=== PATIENT | male | born 1955 | race African-American/Black ===

== ENCOUNTER 2017-10-30 10:02 | Observation (INO) ==
--- NOTE | 2017-10-30 10:31 | ED ---
HPI General Chief Complaint: Chest Pain Stated Complaint: SOB Time Seen by Provider: 10/30/17 10:26 Source: patient Mode of arrival: EMS Limitations: no limitations History of Present Illness [facility] has a history of hypertension high cholesterol sleep apnea comes in complaining of shortness of breath today. On upon arrival the patient's pulse ox was reading 93%. Patient denies having any coughing or runny nose or productive cough, patient also denies having any nausea vomiting or diarrhea, patient also denies having any history of congestive heart failure or COPD or of any lung tissue disease. MD Complaint: shortness of breath Onset (ago): day(s) (1) Severity: moderate Consistency/Duration: constant Relieving factors: nothing Exacerbating factors: exertion Treatment prior to arrival: oxygen Related Data Home oxygen amount: none Home Medications Medication Instructions Recorded Confirmed atorvastatin 40 mg PO DAILY 10/30/17 10/30/17 latanoprost 1 drp OPHTHALMIC (EYE) QPM 10/30/17 10/30/17 oxybutynin chloride 5 mg PO BID 10/30/17 10/30/17 sildenafil 50 mg PO DAILY PRN 10/30/17 10/30/17 terazosin 2 mg PO DAILY 10/30/17 10/30/17 Allergies Allergy/AdvReac Type Severity Reaction Status Date / Time hydrochlorothiazide Allergy Severe UNKNOWN Unverified 10/30/17 10:14 Review of Systems Except as stated in HPI: all other systems reviewed are negative PMFSH History History Provided By: Patient Medical History Medical History Hypertension (Acute) Benign prostate hyperplasia (Acute) Knee arthropathy (Acute) Sleep apnea (Acute) Hypercholesteremia (Acute) Arthritis (Acute) Social History Social History Substance History: Past History Smoking Status: Never smoker How Often Do You Have a Drink Containing Alcohol: Never Recent Travel in [place] within the Last 8 Weeks: No Recent Out of Country Travel within the Last 8 Weeks: No Substance Abuse Detail Marijuana: Substance Use Status: Sustained Remission Route Used Substance Abuse: Inhalation Immunization History Tetanus Immunization: >5 Years Hx Influenza Vaccine This Season: No Exam Narrative Exam Narrative: GENERAL: -Vincentian male in no apparent distress. SKIN: Warm and dry. HEAD: Atraumatic. Normocephalic. EYES: Pupils equal and round. No scleral icterus. No injection or drainage. ENT: No nasal bleeding or discharge. Mucous membranes pink and moist. NECK: Trachea midline. No JVD. CARDIOVASCULAR: Regular rate and rhythm. no rubs or gallops RESPIRATORY: No accessory muscle use. Mild tachypnea noted, clear to auscultation. Tidal volume adequate and equal bilaterally. GASTROINTESTINAL: Abdomen soft, non-tender, nondistended. No rebound or guarding MUSCULOSKELETAL: Extremities without clubbing, cyanosis, or 1+ pitting edema to bilateral lower extremities. No obvious deformities. NEUROLOGICAL: Awake and alert. No obvious cranial nerve deficits. Motor grossly within normal limits. Five out of 5 muscle strength in the arms and legs. Normal speech. PSYCHIATRIC: Appropriate mood and affect; insight and judgment normal. Course Initial Documented Vital Signs Temperature 98.3 F 10/30/17 10:16 Pulse Rate 81 10/30/17 10:16 Respiratory Rate 16 10/30/17 10:16 Blood Pressure 128/85 10/30/17 10:16 Pulse Oximetry 93 L 10/30/17 10:16 Last Documented Vital Signs Temperature 98.3 F 10/30/17 10:16 Pulse Rate 65 10/30/17 13:25 Respiratory Rate 20 10/30/17 13:25 Blood Pressure 133/81 10/30/17 13:25 Pulse Oximetry 99 10/30/17 13:25 Critical Care Time Critical Care Time: Yes Total Critical Care Time: 30 Attestation: Aggregate critical care time was 30 minutes. Time to perform other separately billable procedures was not included in the critical care time. My time did not include minutes spent treating any other patients simultaneously or on activities that did not directly contribute to the patient's treatment. The services I provided to this patient were to treat and/or prevent clinically significant deterioration that could result in: [Hypoxic brain injury and ] I provided critical care services requiring my management, as noted below: Chart data review, documentation time, medication orders and management, vital sign assessments/reviewing monitor data, ordering and reviewing lab tests, ordering and interpreting/reviewing x-rays and diagnostic studies, care of the patient and discussion of the patient with the admitting physicians. Medical Decision Making MDM Narrative Medical decision making narrative: CBC interpretation shows no leukocytosis, no left shift, no anemia, normal platelet count Coagulation profile is within normal limits First set of cardiac enzymes negative Electrolytes are all within normal limits Chest x-ray read by radiologist as hypoinflation with elevation of right hemidiaphragm and mild bibasilar atelectatic changes no confluent infiltrate As of [address] chest results Differential Diagnosis Differential Diagnosis: Pulmonary embolus versus pericardial effusion versus STEMI versus non-STEMI versus hypertensive emergency Medical Records Medical records reviewed: Yes I reviewed the patient's medical records. Lab Data Lab results reviewed: Yes I reviewed the patient's lab results. Result diagrams: 10/30/17 11:05 10/30/17 11:05 Lab Results 10/30/17 10/30/17 10/30/17 Range/Units 11:05 11:05 11:05 WBC 3.9 L (4.0-11.0) th/mm3 RBC 4.55 (4.50-5.90) mil/mm3 Hgb 13.7 (13.0-17.0) gm/dL Hct 40.9 (39.0-51.0) % MCV 89.9 (80.0-100.0) fL MCH 30.2 (27.0-34.0) pg MCHC 33.6 (32.0-36.0) % RDW 13.6 (11.6-17.2) % Plt Count 205 (150-450) th/mm3 MPV 8.2 (7.0-11.0) fL Neut % (Auto) 72.9 H (16.0-70.0) % Lymph % (Auto) 18.6 (9.0-44.0) % [place] % (Auto) 7.2 (0.0-8.0) % Eos % (Auto) 0.8 (0.0-4.0) % Baso % (Auto) 0.5 (0.0-2.0) % Neut # (Auto) 2.9 (1.8-7.7) th/mm3 Lymph # (Auto) 0.7 L (1.0-4.8) th/mm3 [place] # (Auto) 0.3 (0.0-0.9) th/mm3 Eos # (Auto) 0.0 (0.0-0.4) th/mm3 Baso # (Auto) 0.0 (0.0-0.2) th/mm3 WBC Differential . Differential Comment Auto diff final PT 10.4 (9.8-11.6) sec INR 1.0 Ratio APTT 25.7 (24.3-30.1) sec Sodium 141 (136-145) meq/L Potassium 3.3 L (3.5-5.1) meq/L Chloride 109 H (98-107) meq/L Carbon Dioxide 24.7 (21.0-32.0) meq/L Anion Gap 7 (5-15) meq/L BUN 10 (7-18) mg/dL Creatinine 1.24 (0.60-1.30) mg/dL Estimated GFR 72 L (>89) mL/min Random Glucose 87 (74-106) mg/dL Calcium 7.7 L (8.5-10.1) mg/dL Troponin I Less than 0.02 L (0.02-0.05) ng/mL Imaging Data Radiologist's impression: Chest X-Ray 10/30/17 10:55 CONCLUSION: 1. Hypoinflation with some elevation of the right hemidiaphragm and mild bibasilar atelectatic changes. 2. No confluent infiltrate. Chest CTA 10/30/17 10:56 CONCLUSION: 1. No evidence of pulmonary emboli. 2. Small area of consolidation and/or atelectasis in the right lower lobe. The left lung is clear. ECG Data EKG Prior to Arrival: No Attestation: I personally reviewed and interpreted this ECG as follows: Prior ECG tracings: not available for review Interpretation: Normal sinus rhythm, 82 bpm, normal intervals, nonspecific ST- T wave changes Discharge Plan Discharge Disposition Patient Disposition: 30 Still Patient Discharge Condition Condition: Stable Discharge Details Diagnosis: Pneumonia, Hypoxemia Physicians Team ED Provider: Hemant Mello Primary Care Provider: [facility],Physician 's Rxs /Orders / Referrals /Forms Prescriptions: No Action latanoprost 0.005 % Drops 1 drp OPHTHALMIC (EYE) QPM RF: 0 atorvastatin 40 mg Tablet 40 mg PO DAILY RF: 0 sildenafil 100 mg Tablet 50 mg PO DAILY PRN (Reason: Sexual Activity) RF: 0 terazosin 2 mg Capsule 2 mg PO DAILY RF: 0 oxybutynin chloride 5 mg Tablet 5 mg PO BID RF: 0 Status ED Status: With Doctor
[2017-10-30 11:24] LABS: Baso % (Auto) 0.5 % (0.0-2.0); Eos % (Auto) 0.8 % (0.0-4.0); Hematocrit 40.9 % (39.0-51.0); Hemoglobin 13.7 gm/dL (13.0-17.0); Lymph # (Auto) 0.7 th/mm3 (1.0-4.8); Lymph % (Auto) 18.6 % (9.0-44.0); Mean Corpuscular HGB Conc 33.6 % (32.0-36.0); Mean Corpuscular Hemoglobin 30.2 pg (27.0-34.0); Mean Corpuscular Volume 89.9 fL (80.0-100.0); Mean Platelet Volume 8.2 fL (7.0-11.0); Mono # (Auto) 0.3 th/mm3 (0.0-0.9); Mono % (Auto) 7.2 % (0.0-8.0); Neut # (Auto) 2.9 th/mm3 (1.8-7.7); Neut % (Auto) 72.9 % (16.0-70.0); Platelet Count 205 th/mm3 (150-450); Red Blood Count 4.55 mil/mm3 (4.50-5.90); Red Cell Distribution Width 13.6 % (11.6-17.2); White Blood Count 3.9 th/mm3 (4.0-11.0)
[2017-10-30 11:29] LABS: Activated Partial Thrombo Time 25.7 sec (24.3-30.1); Prothrombin Time 10.4 sec (9.8-11.6)
[2017-10-30 11:34] LABS: Anion Gap 7 meq/L (5-15); Blood Urea Nitrogen 10 mg/dL (7-18); Calcium 7.7 mg/dL (8.5-10.1); Carbon Dioxide 24.7 meq/L (21.0-32.0); Chloride 109 meq/L (98-107); Glomerular Filtration Rate 72 mL/min (>89); Glucose,Random 87 mg/dL (74-106); Potassium 3.3 meq/L (3.5-5.1); Sodium 141 meq/L (136-145)
--- NOTE | 2017-10-30 11:49 | XR ---
EXAM DATE: 10/30/2017 11:39 AM EDT AGE/SEX: 62 years / Male INDICATIONS: Chest pains with shortness of breath and pressure. CLINICAL DATA: This is the patient's initial encounter. Patient reports that signs and symptoms have been present for 1 day and indicates a pain score of 6/10. MEDICAL/SURGICAL HISTORY: None. None. COMPARISON: No prior exams available for comparison. FINDINGS: A single AP view of the chest demonstrates some elevation of the right hemidiaphragm with mild bibasi lar atelectatic changes. Lungs are hypoinflated. Heart size is borderline prominent but well compensa ketty. Osseous structures are intact. CONCLUSION: 1. Hypoinflation with some elevation of the right hemidiaphragm and mild bibasilar atelectatic early es. 2. No confluent infiltrate. Electronically signed by: George Hwang MD 10/30/2017 11:48 AM EDT
--- NOTE | 2017-10-30 12:42 | CT ---
EXAM DATE: 10/30/2017 12:36 PM EDT AGE/SEX: 62 years / Male INDICATIONS: SHORTNESS OF BREATH CLINICAL DATA: This is the patient's initial encounter. Patient reports that signs and symptoms have been present for 1 day and indicates a pain score of 0/10. MEDICAL/SURGICAL HISTORY: Hypertension. None. RADIATION DOSE: 10.74 CTDI (mGy) COMPARISON: C, CHEST 1V SINGLE AP, 10/30/2017. . TECHNIQUE: Volumetric scanning was performed using a multi-row detector CT scanner during bolus infu stephanie of 50 ml Omnipaque 350 (iohexol) nonionic water-soluble contrast as a single exam dose. The nancie a was post processed with a variety of visualization algorithms including full volume maximum intensi ty projection and sliding thin slab reformation. Using automated exposure control and adjustment of t he mA and/or kV according to patient size, radiation dose was kept as low as reasonably achievable to obtain optimal diagnostic quality images. DICOM format image data is available electronically for r eview and comparison. FINDINGS: Pulmonary Arteries: No filling defects are seen in the pulmonary arteries out to the subsegmental ve ssels. The left and right pulmonary arteries are normal in diameter. Lung: Is a small area of consolidation and or atelectasis in the right lower lobe. Effusion: None. Mediastinum: No evidence of mediastinal or hilar adenopathy. Other: The axilla is unremarkable. CONCLUSION: 1. No evidence of pulmonary emboli. 2. Small area of consolidation and/or atelectasis in the right lower lobe. The left lung is clear. Electronically signed by: Jon Santa MD 10/30/2017 12:41 PM EDT
[2017-10-30] MEDS ORDERED: Azithromycin Inj 500 MG in Sodium Chlor 0.9% Inj 250 ML IV.SIG STA (13:07)
[2017-10-30] MEDS ORDERED: Temazepam 15 MG Capsule PO PRN (13:45)
[2017-10-30] MEDS ORDERED: Bisacodyl 10 MG Supp RECTAL PRN (13:45)
[2017-10-30] MEDS: Heparin - SQ 10,000 UNITS/ML Vial SQ SCH (14:40)
--- NOTE | 2017-10-30 15:46 | P.HPIM ---
History of Present Illness Primary Care Physician: Physician [facility] History of Present Illness: 62-year-old male with a history of hypertension, hyperlipidemia, obstructive sleep apnea who presents with a 2 day history of worsening shortness of breath, as well as nonproductive cough. Patient works the shift superintendent at a facility, and had to nitin after patient last night, and was noted to be much more short of breath than usual. Patient denies any chest pain. He does report some lightheadedness which resolved upon receiving nebulizations in the ER. Patient says he is feeling a little better. Denies any nausea, vomiting, diarrhea, constipation. Patient has history of left knee surgery with +1 edema on the left at baseline, without change. Review of Systems Performed and negative except for HPI and past medical history. [facility] - History History Provided By: Patient, Medical Record - Medical History Medical History: Medical History (Last Reviewed 10/30/17 @ 14:28 by Sonia Benítez RN) Hypertension (Acute) Benign prostate hyperplasia (Acute) Knee arthropathy (Acute) Sleep apnea (Acute) Hypercholesteremia (Acute) Arthritis (Acute) - Surgical History Surgical History: Surgical History (Last Reviewed 10/30/17 @ 14:28 by Sonia Benítez RN) H/O knee surgery - Family History Family History: Family History (Last Updated 10/30/17 @ 15:[address] MD) Father Healthy adult Mother Diabetes - Tobacco History Second Hand Smoke Exposure: No Smoking Status: Never smoker - Alcohol History How Often Do You Have a Drink Containing Alcohol: 2 to 3 times a week - Substance Use History Substance History: Past History - Substance Use Type Marijuana Status: Sustained Remission Route Used: Inhalation - Travel History Recent Travel in the [place] Within the Last 8 Weeks: No Recent Travel Out of the Country Within the Last 8 Weeks: No - Immunization History Tetanus Immunization: >5 Years Hx Influenza Vaccine This Season: No Medications and Allergies Active Medications: Active Medications Al Hydroxide/Mg Hydroxide (Milk Of [place] Liq) 30 ml PO Q12H PRN PRN Reason: Mild Constipation Albuterol (Duoneb Neb (Prn)) 1 ampul NEB Q4HR NEB PRN PRN Reason: SHORTNESS OF BREATH/WHEEZING Albuterol (Duoneb Neb (Brooke)) 1 ampul NEB Q6HR NEB [place] Atorvastatin Calcium (Lipitor) 40 mg PO DAILY [facility] Last Admin: 07/19/18 14:40 Dose: 40 mg Bisacodyl (Dulcolax Supp) 10 mg RECTAL DAILY PRN PRN Reason: SEVERE CONSITIPATION Heparin Sodium (Porcine) (Heparin Inj) 5,000 units SQ Q12H [facility] Last Admin: 10/30/17 14:40 Dose: 5,000 units Ceftriaxone Sodium 1,000 mg/ (Sodium Chloride) 100 mls @ 200 mls/hr IV.SIG Q24H [facility] Azithromycin 500 mg/ Sodium (Chloride) 250 mls @ 250 mls/hr IV.SIG Q24H [facility] Lactulose (Lactulose Liq) 30 ml PO DAILY PRN PRN Reason: SEVERE CONSITIPATION Latanoprost (Xalatan 0.005% Opth Drops) 1 drop EACH EYE QPM [facility] Senna/Docusate Sodium (Dee-Colace) 1 tab PO BID [facility] Sennosides (Senokot) 17.2 mg PO Q12H PRN PRN Reason: Moderate Constipation Sodium Chloride (Ns Flush) 2 ml IV.FLUSH UNSCH PRN PRN Reason: FLUSH AFTER USING IV ACCESS Temazepam (Restoril) 15 mg PO HS PRN PRN Reason: INSOMNIA Terazosin HCl (Hytrin) 2 mg PO DAILY [facility] Allergies Allergy/AdvReac Type Severity Reaction Status Date / Time hydrochlorothiazide Allergy Severe UNKNOWN Verified 10/30/17 14:28 Home Medications Medication Instructions Recorded Confirmed Type atorvastatin 40 mg PO DAILY 10/30/17 10/30/17 History latanoprost 1 drp OPHTHALMIC (EYE) QPM 10/30/17 10/30/17 History oxybutynin chloride 5 mg PO BID 10/30/17 10/30/17 History sildenafil 50 mg PO DAILY PRN 10/30/17 10/30/17 History terazosin 2 mg PO DAILY 10/30/17 10/30/17 History Exam Vital signs: Vital Signs 10/30/17 10:16 10/30/17 11:14 10/30/17 13:25 Temperature 98.3 F Pulse Rate 81 87 65 Respiratory Rate 16 16 20 Blood Pressure 128/85 128/82 133/81 Pulse Oximetry 93 L 97 99 Intake & Output 10/29/17 10/30/17 10/30/17 18:59 06:59 18:59 Intake Total 100 / 100 Balance 100 / 100 Weight 140.614 kg Intake: IV 100 / 100 Rocephin Inj 2,000 MG In NS Inj 100 / 100 100 ML @ 200 mls/hr IV.SIG STAT STA Rx#:[id number] Narrative: GENERAL: Patient walking in hallway, sitting on bed. Appears comfortable. Alert and oriented 3. SKIN: Warm and dry. HEAD: Atraumatic. Normocephalic. EYES: Pupils equal and round. No scleral icterus. No injection or drainage. ENT: No nasal bleeding or discharge. Mucous membranes pink and moist. NECK: Trachea midline. No JVD. CARDIOVASCULAR: Regular rate and rhythm. RESPIRATORY: No accessory muscle use. rhonchi on the right with deep inspiration. No wheezes. No rales. GASTROINTESTINAL: Abdomen soft, non-tender, nondistended. Hepatic and splenic margins not palpable. MUSCULOSKELETAL: Extremities without clubbing, cyanosis. No obvious deformities. Patient with old surgical scar left knee. +1 edema left lower leg. No edema on the right. NEUROLOGICAL: Awake and alert. No obvious cranial nerve deficits. Motor grossly within normal limits. Five out of 5 muscle strength in the arms and legs. Normal speech. PSYCHIATRIC: Appropriate mood and affect; insight and judgment normal. Results - Labs CBC & Chem 7: 10/30/17 11:05 10/30/17 11:05 Labs: Short CBC 10/30/17 Range/Units 11:05 WBC 3.9 L (4.0-11.0) th/mm3 Hgb 13.7 (13.0-17.0) gm/dL Hct 40.9 (39.0-51.0) % Plt Count 205 (150-450) th/mm3 [facility] 10/30/17 11:05 Sodium 141 Potassium 3.3 L Chloride 109 H Carbon Dioxide 24.7 BUN 10 Creatinine 1.24 Calcium 7.7 L Cardiac Enzymes 10/30/17 Range/Units 11:05 Troponin I Less than 0.02 L (0.02-0.05) ng/mL - Imaging Impressions Chest X-Ray 10/30/17 10:55 CONCLUSION: 1. Hypoinflation with some elevation of the right hemidiaphragm and mild bibasilar atelectatic changes. 2. No confluent infiltrate. Chest CTA 10/30/17 10:56 CONCLUSION: 1. No evidence of pulmonary emboli. 2. Small area of consolidation and/or atelectasis in the right lower lobe. The left lung is clear. Caprini VTE Risk Assessment Caprini VTE Risk Assessment: Moderate/High Risk (score >= 2) Caprini Risk Assessment Model: Point Value = 1 Point Value = 2 Point Value = 3 Point Value = 5 Age 41-60 Minor surgery BMI > 25 kg/m2 Swollen legs Varicose veins or History of unexplained or recurrent spontaneous Oral contraceptives or hormone replacement Sepsis (< 1 month) Serious lung disease, including pneumonia (< 1 month) Abnormal pulmonary function Acute myocardial infarction Congestive heart failure (< 1 month) History of inflammatory bowel disease Medical patient at bed rest Age 61-74 Arthroscopic surgery Major open surgery (> 45 min) Laparoscopic surgery (> 45 min) Malignancy Confined to bed (> 72 hours) Immobilizing plaster cast Central venous access Age >= 75 History of VTE Family history of VTE Factor V Leiden Prothrombin [id number] Lupus anticoagulant Anticardiolipin antibodies Elevated serum homocysteine Heparin-induced thrombocytopenia Other congenital or acquired thrombophilia Stroke (< 1 month) Elective arthroplasty Hip, pelvis, or leg fracture Acute spinal cord injury (< 1 month) Prophylaxis Regimen: Total Risk Factor Score Risk Level Prophylaxis Regimen 0-1 Low Early ambulation 2 Moderate Order ONE of the following: *Sequential Compression Device (SCD) *Heparin 5000 units SQ BID 3-4 Higher Order ONE of the following medications: *Heparin 5000 units SQ TID *Enoxaparin/Lovenox 40 mg SQ daily (WT < 150 kg, CrCl > 30 mL/min) *Enoxaparin/Lovenox 30 mg SQ daily (WT < 150 kg, CrCl > 10-29 mL/min) *Enoxaparin/Lovenox 30 mg SQ BID (WT < 150 kg, CrCl > 30 mL/min) AND/OR *Sequential Compression Device (SCD) 5 or more Highest Order ONE of the following medications: *Heparin 5000 units SQ TID (Preferred with Epidurals) *Enoxaparin/Lovenox 40 mg SQ daily (WT < 150 kg, CrCl > 30 mL/min) *Enoxaparin/Lovenox 30 mg SQ daily (WT < 150 kg, CrCl > 10-29 mL/min) *Enoxaparin/Lovenox 30 mg SQ BID (WT < 150 kg, CrCl > 30 mL/min) AND *Sequential Compression Device (SCD) Assessment and Plan - Plan //Right lower lobe pneumonia //Community-acquired pneumonia = Chest x-ray reviewed. = With relative hypoxia from baseline. 93 on room air. = Continue IV ceftriaxone and azithromycin. Scheduled and as needed duo nebs /Hypokalemia. 3.3. Replace and monitor. //Leukopenia. 3.9. Uncertain chronicity. Monitor. //Hypertension. Chronic. Blood pressure acceptable. Continue home medication. //Hyperlipidemia. Chronic. Continue home medication. //Glaucoma. Pupils equal round reactive to light and accommodation. Continue eyedrops. Discharge Planning: Likely discharge home tomorrow if feeling better. H&P: Quality - VTE Deep Vein Thrombosis/Pulmonary Embolism Present on Admission: No
[2017-10-30] MEDS ORDERED: Latanoprost 0.005% Opth Drops 2.5 ML Bottle EACH EYE SCH (18:00)
--- NOTE | 2017-10-30 18:53 | ECG ---
Date Performed: 10/30/2017 Time Performed: 10:24:50 PTAGE: 62 years EKG: Sinus rhythm NONSPECIFIC T-WAVE ABNORMALITY ABNORMAL ECG PREVIOUS TRACING : 11/09/2007 13.15 Prior Tracing had incorrect Lead placement, non-specific ST -T wave changes may be new. DOCTOR: Ralph Vance Interpretating Date/Time 10/30/2017 18:52:47
[2017-10-30] MEDS: Senna/Docusate Sodium 8.6/50 MG Tablet PO SCH (21:22)
[2017-10-31] MEDS: Heparin - SQ 10,000 UNITS/ML Vial SQ SCH (01:43)
[2017-10-31] MEDS: Senna/Docusate Sodium 8.6/50 MG Tablet PO SCH (08:57)
[2017-10-31 10:31] LABS: Albumin 2.8 g/dL (3.4-5.0); Anion Gap 6 meq/L (5-15); Aspartate Aminotransferase 15 U/L (15-37); Blood Urea Nitrogen 10 mg/dL (7-18); Calcium 8.4 mg/dL (8.5-10.1); Carbon Dioxide 29.5 meq/L (21.0-32.0); Chloride 106 meq/L (98-107); Glomerular Filtration Rate 65 mL/min (>89); Potassium 3.9 meq/L (3.5-5.1); Sodium 141 meq/L (136-145)
[2017-10-31 10:39] LABS: Alanine Aminotransferase 18 U/L (12-78); Alkaline Phosphatase 100 U/L (45-117); Glucose,Random 83 mg/dL (74-106); Total Protein 7.7 g/dL (6.4-8.2)
[2017-10-31] MEDS ORDERED: guaiFENesin 600 MG ER Tablet PO SCH (11:00)
--- NOTE | 2017-10-31 11:26 | P.PN ---
Subjective Interval history: Patient is seen sitting up in bed. He just finished breakfast and tells me that he feels well. Denies any continued shortness of breath. Some intermittent coughing with sputum production. Denies any chest pain. Denies nausea vomiting or diarrhea. He tells me that he would like to go home today. Physical Exam Vital signs: Vital Signs 10/30/17 13:25 10/30/17 16:00 10/30/17 19:23 Temperature 97.9 F 97.8 F Pulse Rate 65 80 71 Respiratory Rate 20 16 16 Blood Pressure 133/81 140/91 H 131/82 Pulse Oximetry 99 96 95 10/30/17 20:13 10/31/17 00:00 10/31/17 04:00 Temperature 97.6 F 98.5 F Pulse Rate 79 78 63 Respiratory Rate 18 Blood Pressure 136/93 H 134/88 Pulse Oximetry 95 99 10/31/17 04:01 10/31/17 08:00 10/31/17 10:31 Temperature 98.1 F Pulse Rate 76 81 93 H Respiratory Rate 18 Blood Pressure 140/92 H Pulse Oximetry 96 100 Intake & Output 10/30/17 10/31/17 10/31/17 18:59 06:59 18:59 Intake Total 450 / 450 720 / 720 500 / 500 Output Total 1450 / 1450 Balance 450 / 450 -730 / -730 500 / 500 Weight 140.614 kg Intake: IV 450 / 450 Azithromycin Inj 500 MG In NS 250 / 250 Inj 250 ML @ 250 mls/hr IV.SIG STAT STA Rx#:[id number] Rocephin Inj 1,000 MG In NS Inj 100 / 100 100 ML @ 200 mls/hr IV.SIG Q24H [facility] Rx#:[id number] Rocephin Inj 2,000 MG In NS Inj 100 / 100 100 ML @ 200 mls/hr IV.SIG STAT STA Rx#:[id number] Oral 720 / 720 500 / 500 Output: Urine 1450 / 1450 Other: # Voids 3 Date of Last Bowel Movement 10/29/17 # Bowel Movements 0 Narrative: GENERAL: Well-nourished, well-developed adult male in no obvious distress. SKIN: Warm and dry. HEAD: Atraumatic. Normocephalic. CARDIOVASCULAR: Regular rate and rhythm. RESPIRATORY: No accessory muscle use. Clear to auscultation. Breath sounds equal bilaterally. No cough during exam. GASTROINTESTINAL: Abdomen soft, non-tender, distended. Positive bowel sounds. MUSCULOSKELETAL: Extremities without clubbing, cyanosis, or edema. No obvious deformities. NEUROLOGICAL: Awake and alert. No obvious cranial nerve deficits. Motor grossly within normal limits. Normal speech. PSYCHIATRIC: Appropriate mood and affect; insight and judgment good. Results - Labs CBC & Chem 7: 10/30/17 11:05 10/31/17 09:34 Laboratory Results - last 24 hr 10/30/17 10/30/17 10/30/17 11:05 11:05 11:05 WBC 3.9 L RBC 4.55 Hgb 13.7 Hct 40.9 MCV 89.9 MCH 30.2 MCHC 33.6 RDW 13.6 Plt Count 205 MPV 8.2 Neut % (Auto) 72.9 H Lymph % (Auto) 18.6 [place] % (Auto) 7.2 Eos % (Auto) 0.8 Baso % (Auto) 0.5 Neut # (Auto) 2.9 Lymph # (Auto) 0.7 L [place] # (Auto) 0.3 Eos # (Auto) 0.0 Baso # (Auto) 0.0 WBC Differential . Differential Comment Auto diff final PT 10.4 INR 1.0 APTT 25.7 Sodium 141 Potassium 3.3 L Chloride 109 H Carbon Dioxide 24.7 Anion Gap 7 BUN 10 Creatinine 1.24 Estimated GFR 72 L Random Glucose 87 Calcium 7.7 L Total Bilirubin AST ALT Alkaline Phosphatase Troponin I Less than 0.02 L Total Protein Albumin 10/31/17 09:34 WBC RBC Hgb Hct MCV MCH MCHC RDW Plt Count MPV Neut % (Auto) Lymph % (Auto) [place] % (Auto) Eos % (Auto) Baso % (Auto) Neut # (Auto) Lymph # (Auto) [place] # (Auto) Eos # (Auto) Baso # (Auto) WBC Differential Differential Comment PT INR APTT Sodium 141 Potassium 3.9 Chloride 106 Carbon Dioxide 29.5 Anion Gap 6 BUN 10 Creatinine 1.36 H Estimated GFR 65 L Random Glucose 83 Calcium 8.4 L Total Bilirubin 0.5 AST 15 ALT 18 Alkaline Phosphatase 100 Troponin I Total Protein 7.7 Albumin 2.8 L - Imaging Impressions Chest X-Ray 10/30/17 10:55 CONCLUSION: 1. Hypoinflation with some elevation of the right hemidiaphragm and mild bibasilar atelectatic changes. 2. No confluent infiltrate. Chest CTA 10/30/17 10:56 CONCLUSION: 1. No evidence of pulmonary emboli. 2. Small area of consolidation and/or atelectasis in the right lower lobe. The left lung is clear. Assessment and Plan - Assessment (1) Community acquired bacterial pneumonia Code(s): J15.9 - Unspecified bacterial pneumonia Status: Acute - Plan //Right lower lobe pneumonia; Community-acquired -Chest x-ray showed mild basilar atelectatic changes. CTA negative for PE -IV ceftriaxone and azithromycin given; we will discharge with Levaquin, Mucinex ,, albuterol inhaler and short course of prednisone. -Scheduled and as needed duo nebs /Hypokalemia. 3.3. Replace and monitor. //Leukopenia. 3.9. Uncertain chronicity. Monitor. //Hypertension. Chronic. Blood pressure acceptable. Continue home medication. //Hyperlipidemia. Chronic. Continue home medication. //Glaucoma. Pupils equal round reactive to light and accommodation. Continue eyedrops. Discharge Planning: Discharged today with additional medication.
--- NOTE | 2017-10-31 11:37 | P.DS ---
<Jazmin Frias - Last Filed: 10/31/17 11:40> Date of admission: 10/30/17 13:45 Primary care physician: [facility] Attending physician on discharge: Bernard Lane Anticipated date of discharge: 10/31/17 Brief History from admission: 62-year-old male with a history of hypertension, hyperlipidemia, obstructive sleep apnea who presents with a 2 day history of worsening shortness of breath, as well as nonproductive cough. 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 Patient denies any chest pain. He does report some lightheadedness which resolved upon receiving nebulizations in the ER. Patient says he is feeling a little better. Denies any nausea, vomiting, diarrhea, constipation. Patient has history of left knee surgery with +1 edema on the left at baseline, without change. DS: Diagnosis - Discharge Diagnosis (1) Community acquired bacterial pneumonia Status: Acute DS: Medications - Discharge Medications Prescriptions: albuterol sulfate [Ventolin HFA] 2 puff INH Q6H PRN #1 g PRN Reason: Shortness Of Breath guaifenesin [Mucinex] 600 mg PO BID #14 tab levofloxacin 750 mg PO DAILY #5 tab prednisone 20 mg PO DAILY #5 tab DS: Summary Hospital Course: 62-year-old male with a history of hypertension, hyperlipidemia, obstructive sleep apnea who presented to the ED with a 2 day history of worsening shortness of breath, as well as nonproductive cough. 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 Patient denied chest pain. He reported some lightheadedness which resolved upon receiving nebulizations in the ER. He was found to have right lower lobe pneumonia and was treated with IV ceftriaxone and azithromycin. Imaging in hospital include chest x-ray showed mild basilar atelectatic changes. CTA negative for PE. Patient did have an episode of hypokalemia which was replaced and resolved. Also noted to have leukopenia of uncertain chronicity.. Chronic conditions including hypertension, hyperlipidemia and glaucoma you were stable at visit. Discharged with Levaquin , Mucinex, albuterol inhaler and short course of prednisone. [facility] - Time Spent with Patient Total time spent providing and/or coordinating discharge services: - Quality: VTE Deep Vein Thrombosis/Pulmonary Embolism Present on Admission: No Exam Vital signs: Vital Signs 10/30/17 13:25 10/30/17 16:00 10/30/17 19:23 Temperature 97.9 F 97.8 F Pulse Rate 65 80 71 Respiratory Rate 20 16 16 Blood Pressure 133/81 140/91 H 131/82 Pulse Oximetry 99 96 95 10/30/17 20:13 10/31/17 00:00 10/31/17 04:00 Temperature 97.6 F 98.5 F Pulse Rate 79 78 63 Respiratory Rate 16 18 Blood Pressure 136/93 H 134/88 Pulse Oximetry 95 99 10/31/17 04:01 10/31/17 08:00 10/31/17 10:31 Temperature 98.1 F Pulse Rate 76 81 93 H Respiratory Rate 18 Blood Pressure 140/92 H Pulse Oximetry 96 100 Intake & Output 10/30/17 10/31/17 10/31/17 18:59 06:59 18:59 Intake Total 450 / 450 720 / 720 500 / 500 Output Total 1450 / 1450 Balance 450 / 450 -730 / -730 500 / 500 Weight 140.614 kg Intake: IV 450 / 450 Azithromycin Inj 500 MG In NS 250 / 250 Inj 250 ML @ 250 mls/hr IV.SIG STAT STA Rx#:[id number] Rocephin Inj 1,000 MG In NS Inj 100 / 100 100 ML @ 200 mls/hr IV.SIG Q24H ALEXANDER Rx#:[id number] Rocephin Inj 2,000 MG In NS Inj 100 / 100 100 ML @ 200 mls/hr IV.SIG STAT STA Rx#:[id number] Oral 720 / 720 500 / 500 Output: Urine 1450 / 1450 Other: # Voids 3 Date of Last Bowel Movement 10/29/17 # Bowel Movements 0 Narrative: GENERAL: Well-nourished, well-developed adult male in no obvious distress. SKIN: Warm and dry. HEAD: Atraumatic. Normocephalic. CARDIOVASCULAR: Regular rate and rhythm. RESPIRATORY: No accessory muscle use. Clear to auscultation. Breath sounds equal bilaterally. No cough during exam. GASTROINTESTINAL: Abdomen soft, non-tender, distended. Positive bowel sounds. MUSCULOSKELETAL: Extremities without clubbing, cyanosis, or edema. No obvious deformities. NEUROLOGICAL: Awake and alert. No obvious cranial nerve deficits. Motor grossly within normal limits. Normal speech. PSYCHIATRIC: Appropriate mood and affect; insight and judgment good. Results Procedures completed during hospitalization: none Labs on day of discharge: Labs from last 24 hours 10/31/17 10/30/17 10/30/17 09:34 11:05 11:05 PT 10.4 INR 1.0 APTT 25.7 Sodium 141 141 Potassium 3.9 3.3 L Chloride 106 109 H Carbon Dioxide 29.5 24.7 Anion Gap 6 7 BUN 10 10 Creatinine 1.36 H 1.24 Estimated GFR 65 L 72 L Random Glucose 83 87 Calcium 8.4 L 7.7 L Total Bilirubin 0.5 AST 15 ALT 18 Alkaline Phosphatase 100 Troponin I Less than 0.02 L Total Protein 7.7 Albumin 2.8 L - Impressions ITS Impressions Chest X-Ray 10/30/17 10:55 CONCLUSION: 1. Hypoinflation with some elevation of the right hemidiaphragm and mild bibasilar atelectatic changes. 2. No confluent infiltrate. Chest CTA 10/30/17 10:56 CONCLUSION: 1. No evidence of pulmonary emboli. 2. Small area of consolidation and/or atelectasis in the right lower lobe. The left lung is clear. <Bernard Lane - Last Filed: 11/05/17 07:58> Date of admission: 10/30/17 13:45 Primary care physician: [facility] DS: Summary - Time Spent with Patient Total time spent providing and/or coordinating discharge services: Results - Impressions ITS Impressions Chest X-Ray 10/30/17 10:55 CONCLUSION: 1. Hypoinflation with some elevation of the right hemidiaphragm and mild bibasilar atelectatic changes. 2. No confluent infiltrate. Chest CTA 10/30/17 10:56 CONCLUSION: 1. No evidence of pulmonary emboli. 2. Small area of consolidation and/or atelectasis in the right lower lobe. The left lung is clear. Discharge Plan - Discharge Order Discharge Orders: Discharge Order (Routine); Ordered 10/31/17 Ordered By: Jazmin Frias - Physicians Team Primary Care Provider: [facility] Attending Provider: Bernard Lane
[2017-10-31] MEDS ORDERED: Azithromycin Inj 500 MG in Sodium Chlor 0.9% Inj 250 ML IV.SIG SCH (14:00)
[2017-11-01] MEDS ORDERED: levoFLOXacin 750 MG Tablet PO SCH (09:00)
[2017-11-01] MEDS ORDERED: predniSONE 20 MG Tablet PO SCH (09:00)
== END 2017-10-31 12:33 | disposition home or self-care (01) ==
LOC: NEDA 10:02 → NEPE 10:02 → NEPHCDU 10:02
PROVIDERS: ADMIT Internal Medicine; ATTEND Internal Medicine